=== PATIENT | female | born 1945 | race Caucasian/White ===

== ENCOUNTER 2018-09-18 14:45 | Emergency (ER) | payer MEDICARE, MEDICAID ==
--- NOTE | 2018-09-18 17:20 | ED ---
GI/ HPI - HPI Summary HPI Summary: This patient is a 73 year old female presenting to [facility] with a chief complaint of rectal and vaginal bleed. She reports constipation for approximately 2 months. She did not notify any healthcare providers until today, when she notified her mental health provider of these problems, where they then brought her here. The patient states she has a Hx of melanoma. She reports abdominal pain in the RLQ. She states a Hx of appendectomy. The patient rates her pain 8/ 10 in severity. - History of Current Complaint Chief Complaint: EDAbdPain Time Seen by Provider: 09/18/18 17:05 Stated Complaint: VAGINAL/RECTAL BLEEDING PER PT Hx Obtained From: Patient Onset/Duration: Started Weeks Ago Timing: Constant Severity: Moderate Current Severity: Moderate Pain Intensity: 8 - Allergy/Home Medications Allergies/Adverse Reactions: Allergies Allergy/AdvReac Type Severity Reaction Status Date / Time Influenza Virus Vaccines Allergy Unknown Verified 09/18/18 15:20 Reaction Details Penicillins Allergy Unknown Verified 09/18/18 15:20 Reaction Details Sulfa (Sulfonamide Allergy Unknown Verified 09/18/18 15:20 Antibiotics) Reaction Details Home Medications: Home Medications Acetaminophen TAB* [Tylenol TAB*] 650 mg PO Q8HR PRN 09/18/18 [History Confirmed 09/18/18] Al Hydrox/Mg Hydrox/Simet LIQ* [Maalox Plus*] 30 ml PO Q6H PRN 09/18/18 [ History Confirmed 09/18/18] Baclofen TAB* [Lioresal TAB*] 10 mg PO TID 09/18/18 [History Confirmed 09/18/18] Benztropine TAB* [Cogentin TAB*] 0.5 mg PO QAM 09/18/18 [History Confirmed 09/18] Bismuth Subsalicylate [Kaopectate] 30 ml PO BID PRN 09/18/18 [History Confirmed 09/18/18] Calcium Carb/Vit D3/Minerals [Calcium 600+D Plus [place]] 1 tab PO BID 09/18/18 [ History Confirmed 09/18/18] Cholecalciferol TAB* [Vitamin D TAB*] 2,000 units PO DAILY 09/18/18 [History Confirmed 09/18/18] Diclofenac 1% GEL (NF) [Voltaren 1% GEL (NF)] 4 gm TOPICAL TID 09/18/18 [ History Confirmed 09/18/18] Docusate CAP* [Colace Cap*] 100 mg PO BID 09/18/18 [History Confirmed 09/18/18] LORazepam TAB(*) [Ativan 0.5 MG TAB (*)] 0.5 mg PO TID 09/18/18 [History Confirmed 09/18/18] Loperamide CAP* [Imodium CAP*] 2 mg PO Q4H PRN 09/18/18 [History Confirmed 09/18] Magnesium Hydroxide LIQ* [Milk of Magnesia LIQ*] 30 ml PO Q4HR PRN 09/18/18 [ History Confirmed 09/18/18] Multivitamins/Minerals TAB* [Theragran/minerals TAB*] 1 tab PO DAILY 09/18/18 [ History Confirmed 09/18/18] OLANZapine [Zyprexa Zydis] 15 mg PO QAM 09/18/18 [History Confirmed 09/18/18] celeCOXIB CAP* [CeleBREX CAP*] 200 mg PO BID 09/18/18 [History Confirmed ] diPHENhydraMINE PO* [Benadryl PO 25 MG TAB*] 25 mg PO Q6H PRN 09/18/18 [History Confirmed 09/18/18] guaiFENesin LIQ* [Robitussin*] 10 ml PO Q4H PRN 09/18/18 [History Confirmed ] PMH/Surg Hx/FS Hx/Imm Hx GI History: Reports: Other GI Disorders - Constipation Musculoskeletal History: Reports: Other Musculoskeletal History - Muscle Spasms Psychiatric History: Reports: Hx Anxiety, Hx Depression Infectious Disease History: No Infectious Disease History: Denies: Traveled Outside the [place] in Last 30 Days - Family History Known Family History: Positive: Non-Contributory - Social History Lives: Alf Alcohol Use: None Substance Use Type: Reports: None Hx Tobacco Use: No Review of Systems Positive: Abdominal Pain Positive: hematuria, other - Constipation, blood in stool All Other Systems Reviewed And Are Negative: Yes Physical Exam - Summary Physical Exam Summary: Appearance: The patient is well-nourished in no acute distress and in no acute pain. Skin: The skin is warm and dry and skin color reflects adequate perfusion. HEENT: The head is normocephalic and atraumatic. The pupils are equal and reactive. The conjunctivae are clear and without drainage. Nares are patent and without drainage. Mouth reveals moist mucous membranes and the throat is without erythema and exudate. The external ears are intact. The ear canals are patent and without drainage. The tympanic membranes are intact. Neck: The neck is supple with full range of motion and non-tender. There are no carotid bruits. There is no neck vein distension. Respiratory: Chest is non-tender. Lungs are clear to auscultation and breath sounds are symmetrical and equal. Cardiovascular: Heart is regular rate and rhythm. There is no murmur or rub auscultated. There is no peripheral edema and pulses are symmetrical and equal. Abdomen: The abdomen is soft and tender in the RLQ. There are normal bowel sounds heard in all four quadrants and there is no organomegaly palpated. Musculoskeletal: There is no back tenderness noted. Extremities are non-tender with full range of motion. There is good capillary refill. There is no peripheral edema or calf tenderness elicited. Neurological: Patient is alert and oriented to person, place and time. The patient has symmetrical motor strength in all four extremities. Cranial nerves are grossly intact. Deep tendon reflexes are symmetrical and equal in all four extremities. Psychiatric: The patient has an appropriate affect and does not exhibit any anxiety or depression. Rectal: External hemorrhoids, no bleeding, brown hard stool. Triage Information Reviewed: Yes Vital Signs On Initial Exam: Initial Vitals Temp Pulse Resp BP Pulse Ox 99.6 F 75 20 151/87 98 09/18/18 15:13 09/18/18 15:13 09/18/18 15:13 09/18/18 15:13 09/18/18 15:13 Vital Signs Reviewed: Yes Diagnostics - Vital Signs Vital Signs Temp Pulse Resp BP Pulse Ox 09/18/18 15:13 99.6 F 75 20 151/87 98 - Laboratory Result Diagrams: 09/18/18 17:30 09/18/18 17:30 Lab Statement: Any lab studies that have been ordered have been reviewed, and results considered in the medical decision making process. - CT Abdomen/Pelvis CT Interpretation Completed By: Radiologist Summary of CT Findings: 1. No visible renal, ureteral or bladder calcuili. 2. No other acute CT pathology. ED Provider has reviewed this report. GIGU Course/Dx - Course Course Of Treatment: Ms. Garcia presented to the emergency department requesting an enema. She felt like she was constipated. Blood had been seen earlier when she moved her bowels. She was mildly tender in the right lower quadrant. She was nontoxic in appearance with stable vitals. Labs were unremarkable. CT scan was likewise negative for any acute pathology or constipation. Stool was positive guaiac but not grossly positive. I recommended close follow-up for further investigation. - Diagnoses Provider Diagnoses: Rectal bleeding Discharge - Sign-Out/Discharge Documenting (check all that apply): Patient Departure - Discharge Patient Received Moderate/Deep Sedation with Procedure: No - Discharge Plan Condition: Stable Disposition: HOME Patient Education Materials: Rectal Bleeding (ED) Referrals: Session Kristopher TAYLOR [Primary Care Provider] - Additional Instructions: Follow up with your primary care provider. Return to ED with any new or worsening symptoms. - Billing Disposition and Condition Condition: STABLE Disposition: Home - Attestation Statements Document Initiated by Nikhil: Yes Documenting Scribe: Hernando Stratton Provider For Whom Nikhil is Documenting (Include Credential): Rey Morales MD Scribe Attestation: IHernando, scribed for Rey Morales MD on 09/18/18 at 2101. Scribe Documentation Reviewed: Yes Provider Attestation: The documentation as recorded by the Hernando cunningham accurately reflects the service I personally performed and the decisions made by me, Rey Morales MD Status of Scribe Document: Viewed
[2018-09-18 17:38] LABS: ABS Eosinophils 0.1 10^3/ul (0-0.6); ABS Monocytes 0.5 10^3/ul (0-0.8); ABS Neutrophils 4.4 10^3/ul (1.5-7.7); Eosinophil % 1.2 %; Hematocrit 40 % (35-47); Hemoglobin 13.1 g/dL (12.0-16.0); Mean Corpuscular HGB Conc 33 g/dL (31-36); Mean Corpuscular Hemoglobin 29 pg (27-31); Mean Corpuscular Volume 87 fL (80-97); Mean Platelet Volume 7.9 fL (7.4-10.4); Nucleated Red Blood Cells % 0.1; Platelet Count 233 10^3/uL (150-450); Red Blood Count 4.52 10^6 /uL (3.70-4.87); Red Cell Distribution Width 14 % (10.5-15)
[2018-09-18 17:55] LABS: Albumin 4.1 g/dL (3.2-5.2); Albumin/Globulin Ratio 1.5 (1-3); BUN/Creatinine Ratio 39.4 (8-20); C Reactive Protein 3.12 mg/L (<8.01); Calcium 9.5 mg/dL (8.6-10.3); EGFR African American 105.6 (>60); EGFR Non-African American 87.3 (>60); Globulin 2.7 g/dL (2-4); Total Bilirubin 0.4 mg/dL (0.2-1.0); Total Protein 6.8 g/dL (6.4-8.9)
[2018-09-18 18:31] LABS: Urine Appearance Clear; Urine Bacteria Absent (Absent); Urine Bilirubin Negative (Negative); Urine Blood Negative (Negative); Urine Color Yellow; Urine Glucose Negative (Negative); Urine Ketones Negative (Negative); Urine Nitrite Negative (Negative); Urine Protein Negative (Negative); Urine Red Blood Cell Trace(0-2/hpf) (Absent); Urine Specific Gravity 1.016 (1.010-1.030); Urine Urobilinogen Negative (Negative); Urine White Blood Cell Trace(0-5/hpf) (Absent)
[2018-09-18 20:21] VITALS: BP 0/0
== END 2018-09-18 20:20 | disposition home or self-care (01) ==
LOC: ED 14:45
DX: K62.5 Hemorrhage of anus and rectum (principal); M62.838 Other muscle spasm; R10.31 Right lower quadrant pain; K59.00 Constipation, unspecified; Z90.89 Acquired absence of other organs; Z88.0 Allergy status to penicillin; Z88.2 Allergy status to sulfonamides; Z88.7 Allergy status to serum and vaccine
CPT/HCPCS: 36415; 74176; 80053; 81003; 81015; 82272; 83605; 85025; 86140; 87086; 99283